=== PATIENT | female | born 1985 | race American Indian/Alaskan Native ===

== ENCOUNTER 2019-04-10 18:38 | Emergency (ER) | payer MEDICAID ==
[2019-04-10] MEDS ORDERED: IBUPROFEN 600 MG TAB PO ONE (21:49)
[2019-04-10] MEDS ORDERED: ONDANSETRON 4 MG ODT TAB PO ONE (21:49)
--- NOTE | 2019-04-10 21:49 | Event Note ---
ED Screening Note ED Screening Note: body aches headache lower abd discomfort +diarrhea couple episodes of vomiting +dry cough no dysuria +urinary frequency two days of symptoms no sick contacts only took theraflu once PMHx htn allergy: PCN-rash LNMP: last week This initial assessment/diagnostic orders/clinical plan/treatment(s) is/are menchaca bject to change based on patients health status, clinical progression and re- assessment by fellow clinical providers in the ED. Further treatment and workup at subsequent clinical providers discretion. Patient/guardian urged not to elope from the ED as their condition may be serious if not clinically assessed and managed. Initial orders include: UA, urine preg, flu swab, labs given ibuprofen and zofran in triage
[2019-04-10 22:28] LABS: Basophils % (Auto) 0.5 % (0.0-1.8); Eosinophils # (Auto) 0.1 K/mm3 (0.0-0.4); Eosinophils % (Auto) 1.4 % (0.0-4.3); Hematocrit 38.8 % (30.3-42.9); Hemoglobin 12.7 gm/dl (10.1-14.3); Lymphocytes # (Auto) 0.4 K/mm3 (1.2-5.4); Lymphocytes % (Auto) 5.8 % (13.4-35.0); Mean Corpuscular HGB Conc 33 % (30-34); Monocytes # (Auto) 0.7 K/mm3 (0.0-0.8); Monocytes % (Auto) 10.9 % (0.0-7.3); Platelet Count 259 K/mm3 (140-440); Red Blood Count 5.73 M/mm3 (3.65-5.03); Red Cell Distribution Width 18.6 % (13.2-15.2)
[2019-04-10 22:34] LABS: Mean Corpuscular Volume 68 fl (79-97)
[2019-04-10 22:40] LABS: Alanine Aminotransferase 18 units/L (7-56); Albumin 4.3 g/dL (3.9-5); BUN/Creatinine Ratio 8; Blood Urea Nitrogen 7 mg/dL (7-17); Calcium 9.6 mg/dL (8.4-10.2); Hemolysis Index 0
[2019-04-10 22:56] LABS: HCG Qualitative,Urine Negative (Negative)
[2019-04-10 23:24] LABS: Bacteria,Urine 1+ /HPF (Negative); Bilirubin,Urine NEG (Negative); Blood,Urine NEG (Negative); Color,Urine Straw (Yellow); Protein,Urine <15 mg/dL mg/dL (Negative); Urobilinogen,Urine < 2.0 mg/dL (<2.0); WBC,Urine < 1.0 /HPF (0.0-6.0)
[2019-04-11] MEDS ORDERED: diphenhydrAMINE 25 MG CAP PO ONE (01:20)
[2019-04-11] MEDS ORDERED: ACETAMINOPHEN 500 MG TAB PO ONE (01:20)
[2019-04-11] MEDS ORDERED: FAMOTIDINE 20 MG TAB PO ONE (01:20)
[2019-04-11] MEDS ORDERED: predniSONE 20 MG TAB PO ONE (01:20)
[2019-04-11] MEDS ORDERED: SODIUM CHLORIDE 0.9% 1000 ML 1,000 ML IV ONE (01:21)
--- NOTE | 2019-04-11 01:50 | XRay Report ---
CHEST 2 VIEWS INDICATION / CLINICAL INFORMATION: cough, fever. COMPARISON: No relevant prior imaging study available. FINDINGS: SUPPORT DEVICES: None. HEART / MEDIASTINUM: No significant abnormality. LUNGS / PLEURA: No significant pulmonary or pleural abnormality. No pneumothorax. ADDITIONAL FINDINGS: No significant additional findings. IMPRESSION: 1. No acute abnormality of the chest. Signer Name: Low Crabtree MD Signed: 04/11/2019 1:46 AM Workstation Name: [id number]
--- NOTE | 2019-04-11 03:03 | Emergency Department Report ---
ED Abdominal Pain HPI - General Chief Complaint: Abdominal Pain Stated Complaint: FLU SYM Time Seen by Provider: 04/10/19 21:47 Source: patient, family Mode of arrival: Wheelchair Limitations: No Limitations - History of Present Illness Initial Comments: Patient is a 33-year-old [place] female with no past medical history presents to the ED with convent of acute onset persistence of diffuse body aches and pains, intermittent fever of up to 102F, chills, nasal and sinus congestion, dry cough, diffuse abdominal pain, nausea and vomiting, diarrhea, urinary frequency or urgency appetite for the last 2 days. Patient states that her on child had similar symptoms but less severe but a week ago. Patient denies dizziness, syncope, chest pain, shortness of breath, dysuria, sore throat, palpitations, vaginal bleeding, neck pain or change in vision. Patient states that she has been taking [id number] medications with no relief. MD Complaint: abdominal pain, other (nausea, vomiting, diffuse body aches and pain, fever and chills) -: Sudden, days(s) (2) Location: diffuse Radiation: none Migration to: no migration Severity: severe Severity scale (0 -10): 8 Quality: cramping, aching, sharp Consistency: constant Improves With: nothing Worsens With: nothing Context: sick contacts Associated Symptoms: denies other symptoms, nausea, vomiting, diarrhea, fever, chills, anorexia. denies: dysuria, hematemesis, hematochezia, melena, syncope Treatments Prior to Arrival: NSAIDs - Related Data LMP Date: 04/02/19 Previous Rx's Medication Instructions Recorded Last Taken Type Benzonatate [Tessalon Perles] 100 mg PO Q8HR #30 capsule 04/11/19 Unknown Rx Dicyclomine [Bentyl] 20 mg PO Q6H PRN #20 tablet 04/11/19 Unknown Rx Famotidine [Pepcid] 20 mg PO Q12H #60 tablet 04/11/19 Unknown Rx Ibuprofen [Motrin] 800 mg PO Q8HR PRN #24 tablet 04/11/19 Unknown Rx Ondansetron [Zofran ODT TAB] 8 mg PO Q8HR PRN #20 tab.rapdis 04/11/19 Unknown Rx Oseltamivir [Tamiflu] 75 mg PO Q12H #10 cap 04/11/19 Unknown Rx Allergies Allergy/AdvReac Type Severity Reaction Status Date / Time Penicillins Allergy Hives Verified 04/10/19 18:49 ED Review of Systems ROS: Stated complaint: FLU SYM Other details as noted in HPI Constitutional: denies: chills, fever Eyes: denies: eye pain, eye discharge, vision change ENT: congestion. denies: ear pain, throat pain Respiratory: cough. denies: shortness of breath, wheezing Cardiovascular: denies: chest pain, palpitations Endocrine: no symptoms reported Gastrointestinal: abdominal pain, nausea, vomiting, diarrhea Genitourinary: denies: urgency, dysuria, frequency, hematuria, discharge Musculoskeletal: back pain, arthralgia, myalgia. denies: joint swelling Skin: denies: rash, lesions Neurological: headache. denies: weakness, paresthesias Psychiatric: denies: anxiety, depression Hematological/Lymphatic: denies: easy bleeding, easy bruising ED Past Medical Hx - Past Medical History Previous Medical History?: Yes Hx Hypertension: Yes - Surgical History Past Surgical History?: Yes Hx Cholecystectomy: Yes Additional Surgical History: tubal ligation - Social History Smoking Status: Never Smoker Substance Use Type: None - Medications Home Medications: Home Medications Medication Instructions Recorded Confirmed Last Taken Type Benzonatate [Tessalon Perles] 100 mg PO Q8HR #30 capsule 04/11/19 Unknown Rx Dicyclomine [Bentyl] 20 mg PO Q6H PRN #20 tablet 04/11/19 Unknown Rx Famotidine [Pepcid] 20 mg PO Q12H #60 tablet 04/11/19 Unknown Rx Ibuprofen [Motrin] 800 mg PO Q8HR PRN #24 tablet 04/11/19 Unknown Rx Ondansetron [Zofran ODT TAB] 8 mg PO Q8HR PRN #20 tab.rapdis 04/11/19 Unknown Rx Oseltamivir [Tamiflu] 75 mg PO Q12H #10 cap 04/11/19 Unknown Rx ED Physical Exam - General Limitations: No Limitations General appearance: alert, in no apparent distress, anxious, obese - Head Head exam: Present: atraumatic, normocephalic, normal inspection - Eye Eye exam: Present: normal appearance, PERRL, EOMI Pupils: Present: normal accommodation - ENT ENT exam: Present: normal orophraynx, mucous membranes moist, TM's normal bilaterally, normal external ear exam, other (grossly congested nasal passages) - Neck Neck exam: Present: normal inspection, full ROM - Respiratory Respiratory exam: Present: normal lung sounds bilaterally. Absent: respiratory distress, wheezes, rales, rhonchi, chest wall tenderness, accessory muscle use, decreased breath sounds, prolonged expiratory - Cardiovascular Cardiovascular Exam: Present: normal rhythm, tachycardia, normal heart sounds. Absent: systolic murmur, diastolic murmur, rubs, gallop - GI/Abdominal GI/Abdominal exam: Present: soft, normal bowel sounds. Absent: distended, tenderness, guarding, hyperactive bowel sounds, hypoactive bowel sounds - Extremities Exam Extremities exam: Present: normal inspection, full ROM, normal capillary refill - Back Exam Back exam: Present: normal inspection, full ROM. Absent: tenderness, CVA tenderness (R), CVA tenderness (L), muscle spasm, paraspinal tenderness, vertebral tenderness - Neurological Exam Neurological exam: Present: alert, oriented X3, CN II-XII intact, normal gait, reflexes normal - Psychiatric Psychiatric exam: Present: normal affect, normal mood - Skin Skin exam: Present: warm, dry, intact, normal color. Absent: rash ED Course Vital Signs 04/10/19 04/10/19 04/10/19 19:47 21:49 21:56 Temperature 100.7 F H 100.7 F H Pulse Rate 122 H 111 H Respiratory 18 18 18 Rate Blood Pressure 149/74 149/74 O2 Sat by Pulse 97 96 Oximetry 04/11/19 01:50 Temperature Pulse Rate Respiratory 16 Rate Blood Pressure O2 Sat by Pulse Oximetry ED Medical Decision Making - Lab Data Result diagrams: 04/10/19 21:56 04/10/19 21:56 - Radiology Data Radiology results: report reviewed, image reviewed Chest x-ray shows no acute cardiopulmonary abnormalities or pneumonitis. - Medical Decision Making This is a 33-year-old female who presented to the ED with flulike symptoms characterized by [place] sinus congestion, diffuse body aches and pains, inte rmittent fever up to 102F with chills, nausea and vomiting, abdominal pain, lack of appetite, generalized weakness. In the ED: Patient is alert and oriented 3 and is not in distress but tachycardic and febrile in triage. Patient was treated for fever in the ED and lab results were reviewed and are nonactionable except for mild hyponatremia 134 mmol per liter and a positive test for type A influenza. Patient was treated in the ED with normal saline 1 L IV bolus, antiemetics and antacids. Chest x-ray shows no acute cardiopulmonary abnormalities or pneumonitis, pleural effusion or pneumothorax. On reevaluation, patient's fever resolved as well as tachycardia. Patient's pain and aches also improved significantly and patient was able to keep oral fluids in the ED after being treated for nausea and vomiting. Patient was therefore discharged home on medications and advised to follow-up with her primary care physician in 5-7 days for reevaluation or return to the ED immediately if sym ptoms get worse. - Differential Diagnosis Flu; Pneumonia; Gastroenteritis; UTI; GERD; Dehydration Critical care attestation.: If time is entered above; I have spent that time in minutes in the direct care of this critically ill patient, excluding procedure time. ED Disposition Clinical Impression: Flu-like symptoms, Nausea and vomiting in adult, Influenza due to influenza virus, type A, human, Acute upper respiratory infection Disposition: TO HOME OR SELFCARE Is pt being admited?: No Does the pt Need Aspirin: No Condition: Stable Instructions: Influenza (ED), Acute Nausea and Vomiting (ED), Abdominal Pain (ED) Additional Instructions: Maintain a clear liquid diet for 12-24 hours, take medications as needed for fever, nausea and vomiting. Drink plenty of fluids and follow-up. Primary care physician in 5-7 days for reevaluation. Return to the ED immediately if symptoms get worse. Prescriptions: Dicyclomine [Bentyl] 20 mg PO Q6H PRN #20 tablet PRN Reason: Pain , Severe (7-10) Ibuprofen [Motrin] 800 mg PO Q8HR PRN #24 tablet PRN Reason: Fever >101 Famotidine [Pepcid] 20 mg PO Q12H #60 tablet Oseltamivir [Tamiflu] 75 mg PO Q12H #10 cap Benzonatate [Tessalon Perles] 100 mg PO Q8HR #30 capsule Ondansetron [Zofran ODT TAB] 8 mg PO Q8HR PRN #20 tab.rapdis PRN Reason: Nausea Referrals: LORETTA PADILLA MD [Staff Physician] - 7-10 days Forms: Work/School Release Form(ED) Time of Disposition: 03:08 Print Language: CYMRO
[2019-04-11 03:55] VITALS: BP 132/89
== END 2019-04-11 03:56 | disposition home or self-care (01) ==
LOC: ED 18:38
DX: J10.1 Influenza due to other identified influenza virus with other respiratory manifestations (principal); R11.2 Nausea with vomiting, unspecified; I10 Essential (primary) hypertension; Z90.49 Acquired absence of other specified parts of digestive tract; Z98.51 Tubal ligation status; Z79.1 Long term (current) use of non-steroidal anti-inflammatories (NSAID); Z79.899 Other long term (current) drug therapy; Z88.0 Allergy status to penicillin
CPT/HCPCS: 36415; 71046; 80053; 81001; 81025; 85025; 87400; 96360; 96361; 99284; J7030; J7512; Q0162